=== PATIENT | male | born 1955 | race Hispanic/Latino ===

== ENCOUNTER → 2024-05-29 | Day surgery (SDC) | payer MEDICARE ==
[2024-05-23 10:52] LABS: BASOPHILS % 0.3 % (0.0-1.0); EOSINOPHILS # (AUTO) 0.2 (0.0-0.4); EOSINOPHILS % 2.5 % (0.0-6.0); HEMATOCRIT 40.8 % (38.2-49.6); HEMOGLOBIN 13.7 g/dL (14.0-18.0); LYMPHOCYTES % 31.3 % (18.0-39.1); MEAN CORPUSCULAR HEMOGLOBIN 31.6 pg (28-32); MEAN CORPUSCULAR HGB CONC 33.6 g/dL (31-35); MEAN CORPUSCULAR VOLUME 94.2 fL (81-99); MONOCYTES # (AUTO) 0.7 (0.2-0.8); MONOCYTES % 10.4 % (4.4-11.3); NEUTROPHILS # (AUTO) 3.6 (2.1-6.9); NEUTROPHILS % 55.2 % (38.7-80.0); PLATELET COUNT 164 x10e3/uL (140-360); RED BLOOD COUNT 4.33 x10e6/uL (4.3-5.7); RED CELL DISTRIBUTION WIDTH 12.5 % (11.7-14.4); WHITE BLOOD COUNT 6.45 x10e3/uL (4.8-10.8)
[~2024-05-29] MED LIST: CETIRIZINE HCL5 MG PO; HYOSCYAMINE SULFATE 0.5 MG/ML INJ ONE; JARDIANCE10 MG PO; LACTATED RINGER'S 1,000 ML ONE; LANTUS 3ML100 UNITS/ SC; LIPITOR10 MG PO; MECLIZINE HCL12.5 MG PO; METFORMIN HCL850 MG PO; PANTOPRAZOLE SO40 MG PO; PROPOFOL IV EMULSION 50 ML IV ONE; ZESTRIL2.5 MG PO
[2024-05-29 10:27] VITALS: TEMP 97
[2024-05-29 10:55] VITALS: BP 119/72; PULSE 74; RESP 18; O2SAT 100
== END | disposition home or self-care (01) ==
LOC: OR 08:37
PROVIDERS: ATTEND Internal Medicine Gastroenterology
DX: Z12.11 Encounter for screening for malignant neoplasm of colon (principal); D12.3 Benign neoplasm of transverse colon; K57.30 Diverticulosis of large intestine without perforation or abscess without bleeding; K64.8 Other hemorrhoids; K28.9 Gastrojejunal ulcer, unspecified as acute or chronic, without hemorrhage or perforation; Z71.3 Dietary counseling and surveillance; E78.5 Hyperlipidemia, unspecified; E11.9 Type 2 diabetes mellitus without complications; Z01.810 Encounter for preprocedural cardiovascular examination; Z01.812 Encounter for preprocedural laboratory examination; Z79.4 Long term (current) use of insulin; Z79.84 Long term (current) use of oral hypoglycemic drugs; Z79.899 Other long term (current) drug therapy; Z68.36 Body mass index [BMI] 36.0-36.9, adult
CPT/HCPCS: 36415 ×2; 45385; 82948; 85025; 93005; J1980; J2704; J7121; 45378